=== PATIENT | female | born 1950 | race Two or more races ===

== ENCOUNTER 2017-11-21 19:26 | Inpatient (IN) | payer OTHER ==
[~2017-11-21] VITALS: Ht 162.6 cm; Wt 73.5 kg
--- NOTE | 2017-11-21 19:35 | NUR ---
TO BED 2 A 67 YO FEMALE PATIENT BBRA FROM HOME; HEADACHE X 3 DAYS WITH NAUSEA/ VOMIT. VSS. NAD NOTED. NONDIAPHORETIC. PLACED PATIENT ON VS MONITORING. COMFORT MEASURES RENDERED.
--- NOTE | 2017-11-21 19:38 | NUR ---
Dr Carolina at bedside to evaluate patient.
[2017-11-21] MEDS ORDERED: METOCLOPRAMIDE HCL 10 MG/2 ML VIAL ONE (19:49)
[2017-11-21] MEDS ORDERED: diphenhydrAMINE HCL 50 MG/ML VIAL ONE (19:49)
[2017-11-21] MEDS ORDERED: FAMOTIDINE/PF INJ 20 MG/2 ML VIAL IV ONE ×2 (19:50→20:00)
[2017-11-21 19:57] LABS: BASOPHILS # (AUTO) 0.1 /CMM (0.0-0.2); BASOPHILS % (AUTO) 0.6 % (0.0-2.0); HEMATOCRIT 40 % (33-45); HEMOGLOBIN 13.6 g/dL (11.5-14.8); LYMPHOCYTES # (AUTO) 0.9 /CMM (0.8-4.8); LYMPHOCYTES % (AUTO) 8.3 % (20.0-44.0); MEAN CORPUSCULAR HEMOGLOBIN 30 PG (26.0-33.0); MEAN CORPUSCULAR HGB CONC 34 g/dl (31.0-36.0); MEAN CORPUSCULAR VOLUME 88 fL (82-100); MONOCYTES # (AUTO) 0.2 /CMM (0.1-1.30); MONOCYTES % (AUTO) 1.7 % (2.0-12.0); NEUTROPHILS # (AUTO) 9.5 /CMM (1.8-8.9); NEUTROPHILS % (AUTO) 89.4 % (43.0-81.0); PLATELET COUNT (AUTO) 377 /CMM (150-450); RDW COEFFICIENT OF VARIATION 12.9 (11.5-15.0); RED BLOOD CELL COUNT(AUTO) 4.53 MIL/uL (4.0-5.2); WHITE BLOOD COUNT (AUTO) 10.7 K/uL (4.3-11.0)
[2017-11-21] MEDS ORDERED: diphenhydrAMINE HCL 50 MG/ML VIAL IV ONE (20:00)
[2017-11-21] MEDS ORDERED: IV NS 0.9% 1,000 ML BAG IV ONE (20:00)
[2017-11-21] MEDS ORDERED: METOCLOPRAMIDE HCL 10 MG/2 ML VIAL IV ONE (20:00)
--- NOTE | 2017-11-21 20:08 | NUR ---
medicated patient as ordered by Dr Carolina.
[2017-11-21 20:16] LABS: CALCIUM, SERUM 9.3 mg/dL (8.5-10.1); CARBON DIOXIDE 25 mmol/L (21-32); CHLORIDE 101 mmol/L (98-107); CREATININE 0.7 mg/dL (0.6-1.3); GLUCOSE 146 mg/dL (74-106); POTASSIUM 3.5 mmol/L (3.5-5.1); SODIUM SERUM 137 mmol/L (136-145); UREA NITROGEN, BLOOD 11 mg/dL (7-18)
[2017-11-21 20:19] LABS: INR 0.96 (0.87-1.13)
[2017-11-21 20:21] LABS: ALANINE AMINOTRANSFERASE 19 U/L (12-78); ALBUMIN 4.2 g/dL (3.4-5.0); ALKALINE PHOSPHATASE 82 U/L (46-116); ASPARTATE AMINOTRANSFERASE 13 U/L (15-37); BILIRUBIN,DIRECT 0.1 mg/dL (0.0-0.2); BILIRUBIN,TOTAL 1.1 mg/dL (0.2-1.0); TOTAL PROTEIN, SERUM 7.7 g/dL (6.4-8.2)
[2017-11-21 20:23] LABS: TROPONIN I < 0.017 ng/mL (0.00-0.056)
--- NOTE | 2017-11-21 20:23 | NUR ---
patient back from radiology.
--- NOTE | 2017-11-21 21:01 | NUR ---
TELE BED 312.2
[2017-11-21] MEDS ORDERED: ASPIRIN 325 MG TABLET ONE (21:29)
[2017-11-21] MEDS ORDERED: ASPIRIN 325 MG TABLET PO ONE (21:30)
[2017-11-21] MEDS ORDERED: ONDANSETRON HCL/PF 4 MG/2 ML VIAL ONE (21:46)
[2017-11-21] MEDS ORDERED: ONDANSETRON HCL/PF - ER 4 MG/2 ML VIAL IV ONE (22:00)
--- NOTE | 2017-11-21 22:00 | NUR ---
Report given to Yanique SMART for admission and cornelius.
--- NOTE | 2017-11-21 22:35 | NUR ---
Transferred patient to tele bed via als protocol, no incident noted.
[2017-11-21 22:36] VITALS: BP 151/83
--- NOTE | 2017-11-21 22:40 | NUR ---
RN OPENING NOTES PT ARRIVED ON TO THE UNIT AT 2236 VIA GURNEY FROM THE ER. PT COMPLAINS OF HEADACHE, NAUSEA, AND VOMITING FOR 3 DAYS. PT HAS HISTORY OF MIGRAINES. ORIENTED PATIENT TO THE USE OF CALL LIGHT. PT HAS A L AC #18 IV PATENT AND INTACT. PT LUNGS SOUND CLEAR BILATERALLY. NO COMPLAINTS OF SOB. PT IS TELE MONITORED NORMAL SINUS RHYTHM AT RATE OF 88. SAFETY PRECAUTIONS IN PLACE, BED IN LOW, LOCKED POSITION, [id number] UP. CALL LIGHT WITHIN REACH. WILL CONTINUE TO MONITOR.
[2017-11-22] MEDS ORDERED: CLONIDINE HCL 0.1 MG TABLET PO PRN (00:30)
[2017-11-22] MEDS ORDERED: ACETAMINOPHEN 325 MG TABLET PO PRN (00:30)
[2017-11-22] MEDS ORDERED: ALPRAZOLAM 0.25 MG TABLET PO PRN (00:30)
[2017-11-22] MEDS ORDERED: ONDANSETRON HCL/PF 4 MG/2 ML VIAL IV PRN (00:30)
[2017-11-22] MEDS ORDERED: ZOLPIDEM TARTRATE 5 MG TABLET PO PRN (00:30)
[2017-11-22] MEDS ORDERED: IV PREMIX 0.45% NS + KCL 1,000 ML IV ONE (00:58)
[2017-11-22 04:00] VITALS: BP 151/79
--- NOTE | 2017-11-22 06:41 | NUR ---
TEXTED DR. LINARES FOR MRI APPROVAL.
[2017-11-22 06:44] LABS: CALCIUM, SERUM 8.5 mg/dL (8.5-10.1); CREATININE 0.6 mg/dL (0.6-1.3); POTASSIUM 3.5 mmol/L (3.5-5.1)
[2017-11-22 06:48] LABS: BASOPHILS % (AUTO) 0.2 % (0.0-2.0); EOSINOPHILS % (AUTO) 0.2 % (0.0-6.0); HEMATOCRIT 37 % (33-45); HEMOGLOBIN 12.3 g/dL (11.5-14.8); LYMPHOCYTES # (AUTO) 1.9 /CMM (0.8-4.8); LYMPHOCYTES % (AUTO) 22.3 % (20.0-44.0); MEAN CORPUSCULAR HEMOGLOBIN 30 PG (26.0-33.0); MEAN CORPUSCULAR HGB CONC 34 g/dl (31.0-36.0); MEAN CORPUSCULAR VOLUME 89 fL (82-100); MONOCYTES # (AUTO) 0.6 /CMM (0.1-1.30); MONOCYTES % (AUTO) 7.1 % (2.0-12.0); NEUTROPHILS % (AUTO) 70.2 % (43.0-81.0); PLATELET COUNT (AUTO) 325 /CMM (150-450); RDW COEFFICIENT OF VARIATION 13.6 (11.5-15.0); RED BLOOD CELL COUNT(AUTO) 4.09 MIL/uL (4.0-5.2); WHITE BLOOD COUNT (AUTO) 8.5 K/uL (4.3-11.0)
--- NOTE | 2017-11-22 06:55 | NUR ---
RN CLOSING NOTES PT AWAKE AND RESTING IN BED. NO COMPLAINTS OF PAIN, DISTRESS, OR SOB. PT HAS A L AC #18 IV RUNNING 1/2 NS KCL 20MEQ @75ML/HR. PT IS TELE MONITORED NORMAL SINUS RHYTHM IN THE 80. SAFETY PRECAUTIONS IN PLACE, BED IN LOW, LOCKED POSITION, [id number] UP. CALL LIGHT WITHIN REACH. WILL ENDORSE TO DAY SHIFT NURSE FOR CONTINUITY OF CARE.
--- NOTE | 2017-11-22 07:18 | NUR ---
telephone directory deliverer initial notes Received patient in bed, awake, head of bed elevated, no SOB or distress noted.Alert and oriented x 4, verbally responsive and able to make needs known. On tele monitor SR heart rate of 80. No complaint of pain or discomfort at this time, nor chest pain. IV intact and patent with IVF infusing well 1/2 NS with 20meq of KCL running @ 75ml/hr. Kept patient clean and comfortable in bed, call light with in patient reach, will continue to monitor accordingly.
[2017-11-22 07:21] LABS: THYROID STIMULATING HORMONE 1.304 uIU/mL (0.358-3.74)
[2017-11-22 08:00] VITALS: BP 145/76
[2017-11-22] MEDS ORDERED: HYDROCODONE/APAP 5/325MG 1 EACH TABLET PO PRN ×2 (08:30)
[2017-11-22] MEDS ORDERED: HYDROMORPHONE 1 MG/1 ML DISP.SYRIN IV PRN (08:30)
[2017-11-22] MEDS ORDERED: ASPIRIN 81 MG TAB.CHEW PO SCH (09:00)
[2017-11-22] MEDS ORDERED: AMLODIPINE BESYLATE 2.5 MG TABLET PO SCH (09:00)
[2017-11-22] MEDS ORDERED: ATORVASTATIN 10 MG TABLET PO SCH (09:00)
[2017-11-22] MEDS ORDERED: SUMATRIPTAN SUCCINATE 25 MG TABLET PO ONE (09:00)
[2017-11-22] MEDS ORDERED: TOPIRAMATE 25 MG TABLET PO SCH (09:00)
[2017-11-22 12:00] VITALS: BP 137/82
--- NOTE | 2017-11-22 15:51 | NUR ---
ms rn notes discharge instructions given to patient and able to understand instructions. Prescription given and faxed to preferred pharmacy and went through. discontinued IV and pressured applied on the site to prevent bleeding. Skin is intact. Patient refused flu and pneumonia vaccine, explained the risk and benefits x 3 and still refused. Patient left the hospital in stable condition, no complaint of pain or discomfort at this time, nor chest pain. No SOB or distress noted. Left via ambulatory and tolerated well. Vital signs checked and recorded. MD and charge nurse aware.
== END 2017-11-22 15:30 | disposition home or self-care (01) | DRG 103 ==
LOC: ER 19:28 → TELE 22:18 → MED 11-22 11:34
PROVIDERS: ADMIT Internal Medicine; ATTEND Internal Medicine
DX: G43.109 Migraine with aura, not intractable, without status migrainosus (principal); E78.5 Hyperlipidemia, unspecified; I10 Essential (primary) hypertension; R20.2 Paresthesia of skin; Z88.5 Allergy status to narcotic agent; Z82.49 Family history of ischemic heart disease and other diseases of the circulatory system
CPT/HCPCS: 36415; 70450-TC; 70551-TC; 80048-TC; 80061-TC; 80076-TC; 84443-TC; 84484-TC; 85025-TC; 85730-TC; 87081-TC; J1200; J2405; J2765; J3480; J3490; J7030